=== PATIENT | male | born 1975 | race Caucasian/White ===

== ENCOUNTER 2017-11-16 13:20 | Emergency (ER) | payer OTHER ==
[2017-11-16] MEDS ORDERED: NS 1,000 ML IV ONE (13:45)
[2017-11-16] MEDS ORDERED: ONDANSETRON 4 MG/2 ML VIAL IVP ONE (13:45)
[2017-11-16] MEDS ORDERED: MECLIZINE HCL 25 MG TAB PO ONE (13:47)
--- NOTE | 2017-11-16 13:51 | EDPHY ---
H & P Time Seen by Provider: 11/16/17 13:32 HPI/ROS: CHIEF COMPLAINT: Dizziness HISTORY OF PRESENT ILLNESS: Patient is a 42-year-old male who presents emergency department with dizziness and lightheadedness starting yesterday upon waking. Patient states he got up to go to the bathroom. When he laid back down he felt as though the room was spinning. It is fairly sudden in onset. He has had multiple episodes of nausea and nonbloody emesis. Patient states it is worse with movement. He has had no visual change. He denies weakness or numbness. No previous episodes of vertigo. No recent head trauma. No family history of significant cardiac or neuro disease. REVIEW OF SYSTEMS: 10 systems were reveiwed and are negative with the exception of the elements mentioned in the hisotry of present illness. Past Medical/Surgical History: Negative Past surgical history: Cholecystectomy Social history: Patient is . He drinks alcohol occasionally. Smoking Status: Never smoked Physical Exam: Vitals noted GENERAL: Well-appearing, in no acute distress, alert. HEENT: Eyes normal to inspection, normal pharynx, no signs of dehydration. No nystagmus. TMs negative. NECK: Normal, supple. RESPIRATORY: Clear to auscultation bilaterally, no rales, rhonchi or wheezing. CVS: Regular rate and rhythm, no rubs, murmurs, or gallops. ABDOMEN: Soft, nontender, nondistended, no organomegaly. BACK: Normal to inspection, no CVA tenderness. SKIN: Normal color, no rash, warm, dry. No pallor. EXTREMITIES: No pedal edema, no calf tenderness, no Homans sign or cords, no joint swelling. NEURO/PSYCH: Higher functions: Alert and Oriented x3. Normal speech and cognition. Normal mood and affect. Cranial nerves: Normal as tested. Cerebellar: Normal as tested. Good finger to nose, good [id number], normal gait. Peripheral exam: Normal motor exam. Normal sensation. Constitutional: Initial Vital Signs Temperature (C) 36.4 C 11/16/17 13:25 Heart Rate 75 11/16/17 13:25 Respiratory Rate 18 11/16/17 13:25 Blood Pressure 141/94 H 11/16/17 13:25 O2 Sat (%) 98 11/16/17 13:25 O2 Delivery Mode Room Air Allergies/Adverse Reactions: Penicillins Allergy (Intermediate, Unverified 11/16/17 13:31) Hives Home Medications: Medication Instructions Recorded Meclizine HCl [Meclizine HCl 25 mg 25 mg PO TID #11 tab 11/16/17 (RX,OTC)] Ondansetron Odt [Zofran Odt 4 mg 4 mg PO Q4PRN PRN #7 tab 11/16/17 (*)] Medical Decision Making - Diagnostics Imaging Results: Imaging Impressions Brain MRI 11/16/17 13:48 Impression: Normal MRI of the brain without contrast. Results called and discussed with Dr. Marietta Spaulding at 11/16/2017 14:50. Procedures: Leeanne maneuver Indication: Vertigo Patient is he was consented to the procedure. He tolerated the procedure well. ED Course/Re-evaluation: In the emergency department I discussed possible etiologies with the patient. I answered all his questions. Patient does not want CT imaging. He has not want to be exposed to radiation. His presentation is more consistent with a peripheral vertigo than a central vertigo. However this cannot be fully ruled out. An MRI was ordered. Patient was given meclizine 25 mg orally and Zofran 4 mg IV. He is given normal saline 1 L IV for hydration. EKG shows normal sinus rhythm, normal rate, normal axis, normal intervals. There are no ST or T-wave abnormalities. EKG is normal as interpreted by me. CBC and chemistry are unremarkable. MRI: Please refer the dictated report by Dr. Prieto. No acute disease noted. I discussed the result with the patient. I answered all his questions. He was not have any active nausea or vomiting. I discussed possible etiologies. Patient was given follow-up with ENT to leaving. Will return with worsening symptoms. Differential Diagnosis: My differential includes but is not limited to peripheral vertigo, central vertigo, CVA, dissection, aneurysm, electrolyte abnormality, sugar abnormality, eardrum perforation, otitis media - Data Points Laboratory Results: Laboratory Results 11/16/17 14:00 11/16/17 14:00 11/16/17 11/16/17 14:00 14:00 WBC 8.69 10^3/uL 10^3/uL (3.80-9.50) RBC 5.87 10^6/uL 10^6/uL (4.40-6.38) Hgb 16.8 g/dL g/dL (13.7-17.5) Hct 47.6 % % (40.0-51.0) MCV 81.1 fL L fL (81.5-99.8) MCH 28.6 pg pg (27.9-34.1) MCHC 35.3 g/dL g/dL (32.4-36.7) RDW 12.8 % % (11.5-15.2) Plt Count 245 10^3/uL 10^3/uL (150-400) MPV 11.2 fL fL (8.7-11.7) Neut % (Auto) 78.9 % H % (39.3-74.2) Lymph % (Auto) 16.1 % % (15.0-45.0) Bailey % (Auto) 4.1 % L % (4.5-13.0) Eos % (Auto) 0.1 % L % (0.6-7.6) Baso % (Auto) 0.5 % % (0.3-1.7) Nucleat RBC Rel Count 0.0 % % (0.0-0.2) Absolute Neuts (auto) 6.85 10^3/uL H 10^3/uL (1.70-6.50) Absolute Lymphs (auto) 1.40 10^3/uL 10^3/uL (1.00-3.00) Absolute Monos (auto) 0.36 10^3/uL 10^3/uL (0.30-0.80) Absolute Eos (auto) 0.01 10^3/uL L 10^3/uL (0.03-0.40) Absolute Basos (auto) 0.04 10^3/uL 10^3/uL (0.02-0.10) Absolute Nucleated RBC 0.00 10^3/uL 10^3/uL (0-0.01) Immature Gran % 0.3 % % (0.0-1.1) Immature Gran # 0.03 10^3/uL 10^3/uL (0.00-0.10) Sodium 142 mEq/L mEq/L (135-145) Potassium 4.0 mEq/L mEq/L (3.3-5.0) Chloride 103 mEq/L mEq/L (97-110) Carbon Dioxide 26 mEq/l mEq/l (22-31) Anion Gap 13 mEq/L mEq/L (8-16) BUN 16 mg/dL mg/dL (7-23) Creatinine 1.0 mg/dL mg/dL (0.7-1.3) Estimated GFR > 60 Glucose 136 mg/dL H mg/dL (70-100) Calcium 10.7 mg/dL H mg/dL (8.5-10.4) Phosphorus 1.5 mg/dL L mg/dL (2.5-4.5) Medications Given: Discontinued Medications Sodium Chloride (Ns) 1,000 mls @ 0 mls/hr IV ONCE ONE; Wide Open PRN Reason: Protocol Stop: 11/16/17 13:46 Last Admin: 11/16/17 13:58 Dose: 1,000 mls Clindamycin 300 mg/ Sodium (Chloride) 102 mls @ 204 mls/hr IV EDNOW ONE PRN Reason: Protocol Stop: 11/16/17 14:48 Last Admin: 11/16/17 14:38 Dose: Not Given Meclizine HCl (Meclizine Hcl) 25 mg PO EDNOW ONE Stop: 11/16/17 13:48 Last Admin: 11/16/17 14:05 Dose: 25 mg Ondansetron HCl (Zofran) 4 mg IVP EDNOW ONE Stop: 11/16/17 13:46 Last Admin: 11/16/17 13:59 Dose: 4 mg Departure - Departure Disposition: Home, Routine, Self-Care Clinical Impression: Vertigo Condition: Good Instructions: Vertigo (ED), Acute Nausea and Vomiting (ED) Additional Instructions: Return with increasing dizziness, headache, recurrent vomiting, dehydration or any other concerns. Call Friday to make an appointment with [facility]. The phone number has been provided. Referrals: Deo Sánchez MD [Primary Care Provider] - As per Instructions Amy Rebolledo PA [Physician Ob Nurse] - 3-4 days, if not improved Prescriptions: Meclizine HCl [Meclizine HCl 25 mg (RX,OTC)] 25 mg PO TID #11 tab Ondansetron Odt [Zofran Odt 4 mg (*)] 4 mg PO Q4PRN PRN #7 tab PRN Reason: For Nausea & Vomiting
[2017-11-16 14:17] LABS: PLATELET COUNT 245 10^3/uL (150-400)
[2017-11-16] MEDS ORDERED: CLINDAMYCIN 300 MG in NS 100 ML IV ONE (14:19)
[2017-11-16 15:38] VITALS: BP 108/68
--- NOTE | 2017-11-16 20:17 | CPEKG ---
Test Reason : OPEN Blood Pressure : / mmHG Vent. Rate : 075 BPM Atrial Rate : 074 BPM P-R Int : 161 ms QRS Dur : 106 ms QT Int : 390 ms P-R-T Axes : 043 -27 012 degrees QTc Int : 436 ms Sinus rhythm Borderline left axis deviation Abnormal R-wave progression, early transition Confirmed by Marietta Spaulding ([id number]) on 11/16/2017 8:17:07 PM Referred By: Confirmed By:Marietta Spaulding
== END 2017-11-16 15:42 | disposition home or self-care (01) ==
DX: R42 Dizziness and giddiness (principal); R11.0 Nausea; E86.9 Volume depletion, unspecified
CPT/HCPCS: 96374; J2405